=== PATIENT | female | born 1955 | race Caucasian/White ===

== ENCOUNTER 2018-11-25 11:53 | Emergency (ER) | payer BC ==
[2018-11-25] MEDS ORDERED: DUONEB 0.5-3 MG/3 ml Neb IH ONE ×2 (12:12→12:53)
--- NOTE | 2018-11-25 12:19 | ERPHSYRPT ---
- History of Present Illness Time Seen by Provider: 11/25/18 12:16 Source: patient Patient Subjective Stated Complaint: pt here for sob off and on for about a year getting worse, was seen by family doc for this, she is more tried than normal. and hs swelling to lower legs and face for about a week now, she just got back from [place] last night and was on airplane and in car for 4 hours Triage Nursing Assessment: pt alert, resp easy, skin w/d/p. chest clear, abd soft, no cough or fever, she has sunburn to face and lower legs, she has edema from knees to feet Physician History: mild to mod short of breath getting worse over one year, +GUEVARA, +edema, no pain, no fever, speech fluent, does not smoke Allergies/Adverse Reactions: dermabond Allergy (Uncoded 11/25/18 12:14) Hx Influenza Vaccination/Date Given: No Hx Pneumococcal Vaccination/Date Given: No Immunizations Up to Date: Yes - Review of Systems Constitutional: No Fever Eyes: No Vision Changes Ears, Nose, & Throat: No Nose Congestion Respiratory: Dyspnea, Dyspnea on Exertion (GUEVARA), No Cough, No Cyanosis Cardiac: No Chest Pain Abdominal/Gastrointestinal: No Abdominal Pain Genitourinary Symptoms: No Dysuria Musculoskeletal: No Back Pain Skin: No Rash Neurological: No Dizziness - Past Medical History Pertinent Past Medical History: Yes Cardiac History: High Cholesterol, Hypertension Respiratory History: Asthma - Past Surgical History Past Surgical History: Yes Female Surgical History: Section Other Surgical History: right elbow - Social History Smoking Status: Never smoker Exposure to second hand smoke: No Drug Use: none Patient Lives Alone: Yes - Female History Hx Last Menstrual Period: psot Hx Now: No - Nursing Vital Signs Nursing Vital Signs: Initial Vital Signs Temperature 98.2 F 11/25/18 12:03 Pulse Rate 68 11/25/18 12:03 Respiratory Rate 14 11/25/18 12:03 Blood Pressure 161/92 11/25/18 12:03 O2 Sat by Pulse Oximetry 97 11/25/18 12:03 Pain Scale Pain Intensity 0 - Physical Exam General Appearance: no apparent distress Eye Exam: PERRL/EOMI Ears, Nose, Throat Exam: No nasal congestion Neck Exam: normal inspection Respiratory Exam: normal breath sounds Cardiovascular/Chest Exam: normal heart sounds Abdominal/Gastrointestinal Exam: soft, No tenderness Extremity Exam: normal range of motion, swelling Neurologic Exam: alert, oriented x 3, cooperative Skin Exam: normal color, warm, dry SpO2 Interpretation: normal SpO2: 99 - Course Nursing assessment & vital signs reviewed: Yes EKG Interpreted by Me: Sinus Rhythm, Other (no stemi) - CT Exams Chest CT Interpretation: Discussed w/radiologist, Other (no pe, +opacities) Ordered Tests: Active Orders 24 hr Category Date Time Status Professional Fighter STAT Care 11/25/18 12:15 Active EKG-ER Only STAT Care 11/25/18 12:12 Active IV Insertion STAT Care 11/25/18 12:12 Active CHEST 1 VIEW (PORTABLE) Stat Exams 11/25/18 12:15 Taken CHEST WITH CONTRAST [CT] Stat Exams 11/25/18 13:39 Taken CBC W DIFF Stat Lab 11/25/18 12:32 Completed CMP Stat Lab 11/25/18 12:32 Completed D-DIMER QUANTITATION Stat Lab 11/25/18 12:32 Completed NT PRO BNP Stat Lab 11/25/18 12:32 Completed TROPONIN Q3H Lab 11/25/18 12:32 Completed TROPONIN Q3H Lab 11/25/18 15:41 Received TROPONIN Q3H Lab 11/25/18 18:15 Ordered TROPONIN Q3H Lab 11/25/18 21:15 Ordered TROPONIN Q3H Lab 11/26/18 00:15 Ordered Peak Expiratory Flow Rate ONCE RT 11/25/18 13:05 Active Respiratory Therapy Assessment DAILY RT 11/25/18 13:05 Active Medication Summary Discontinued Medications Generic Name Dose Route Start Last Admin Trade Name Freq PRN Reason Stop Dose Admin Albuterol/Ipratropium 3 ml 11/25/18 12:12 11/25/18 12:55 Duoneb 0.5-3 Mg/3 Ml Neb IH 11/25/18 12:13 3 ml STAT ONE Administration Albuterol/Ipratropium Confirm 11/25/18 12:53 Duoneb 0.5-3 Mg/3 Ml Neb Administered 11/25/18 12:54 Dose 3 ml IH .STK-MED ONE Lab/Rad Data: Laboratory Result Diagrams 11/25/18 12:32 11/25/18 12:32 Laboratory Results 11/25/18 11/25/18 11/25/18 Range/Units 12:32 12:32 12:32 WBC (4.0-10.5) K/mm3 RBC (4.1-5.4) M/mm3 Hgb (12.0-16.0) gm/dl Hct (35-47) % MCV (78-100) fl MCH (26-32) pg MCHC (32-36) g/dl RDW (11.5-14.0) % Plt Count (150-450) K/mm3 MPV (6-9.5) fl Gran % (36.0-66.0) % Eos # (Auto) (0-0.5) Absolute Lymphs (auto) (1.0-4.6) Absolute Monos (auto) (0.0-1.3) Lymphocytes % (24.0-44.0) % Monocytes % (0.0-12.0) % Eosinophils % (0.00-5.0) % Basophils % (0.0-0.4) % Absolute Granulocytes (1.4-6.9) Basophils # (0-0.4) D-Dimer 1205 H* (215-500) ng/mL Sodium 143 (137-145) mmol/L Potassium 4.1 (3.5-5.1) mmol/L Chloride 105 (98-107) mmol/L Carbon Dioxide 28 (22-30) mmol/L Anion Gap 14.1 (5-15) MEQ/L BUN 14 (7-17) mg/dL Creatinine 0.66 (0.52-1.04) mg/dL Estimated GFR > 60.0 ML/MIN Glucose 92 (74-106) mg/dL Calcium 9.9 (8.4-10.2) mg/dL Total Bilirubin 0.60 (0.2-1.3) mg/dL AST 31 (14-36) U/L ALT 29 (0-35) U/L Alkaline Phosphatase 87 (38-126) U/L Troponin I < 0.012 (0.000-0.034) ng/mL NT-Pro-B Natriuret Pep 412 (0-900) pg/mL Serum Total Protein 7.8 (6.3-8.2) g/dL Albumin 4.4 (3.5-5.0) g/dL 11/25/18 Range/Units 12:32 WBC 7.3 (4.0-10.5) K/mm3 RBC 4.65 (4.1-5.4) M/mm3 Hgb 13.9 (12.0-16.0) gm/dl Hct 42.0 (35-47) % MCV 90.3 (78-100) fl MCH 29.9 (26-32) pg MCHC 33.1 (32-36) g/dl RDW 14.6 H (11.5-14.0) % Plt Count 261 (150-450) K/mm3 MPV 11.7 H (6-9.5) fl Gran % 62.7 (36.0-66.0) % Eos # (Auto) 0.47 (0-0.5) Absolute Lymphs (auto) 1.36 (1.0-4.6) Absolute Monos (auto) 0.85 (0.0-1.3) Lymphocytes % 18.6 L (24.0-44.0) % Monocytes % 11.6 (0.0-12.0) % Eosinophils % 6.4 H (0.00-5.0) % Basophils % 0.7 (0.0-0.4) % Absolute Granulocytes 4.57 (1.4-6.9) Basophils # 0.05 (0-0.4) D-Dimer (215-500) ng/mL Sodium (137-145) mmol/L Potassium (3.5-5.1) mmol/L Chloride (98-107) mmol/L Carbon Dioxide (22-30) mmol/L Anion Gap (5-15) MEQ/L BUN (7-17) mg/dL Creatinine (0.52-1.04) mg/dL Estimated GFR ML/MIN Glucose (74-106) mg/dL Calcium (8.4-10.2) mg/dL Total Bilirubin (0.2-1.3) mg/dL AST (14-36) U/L ALT (0-35) U/L Alkaline Phosphatase (38-126) U/L Troponin I (0.000-0.034) ng/mL NT-Pro-B Natriuret Pep (0-900) pg/mL Serum Total Protein (6.3-8.2) g/dL Albumin (3.5-5.0) g/dL - Progress Progress: improved Air Movement: good Progress Note: 11/25/18 15:53 see your doctor, return if worse, diuretic, albuterol inhaler, zpak - Departure Departure Disposition: Home Clinical Impression: Pneumonia Qualifiers: Pneumonia type: due to unspecified organism Laterality: unspecified laterality Lung location: unspecified part of lung Qualified Code(s): J18.9 - Pneumonia, unspecified organism Condition: Stable Critical Care Time: No Referrals: SMITA CHÁVEZ MD [Primary Care Provider] - Instructions: Shortness of Breath (Dyspnea) (DC) Prescriptions: Albuterol Sulfate [Albuterol Sulfate Hfa] 2 puff IH Q4-6HPRN PRN #1 [id number] PRN Reason: cough or wheeze Azithromycin 250 mg [Zithromax 250 MG TABLET] 250 mg PO ZPACK #6 tablet Triamterene/Hydrochlorothiazid [Dyazide 37.5-25 Capsule] 1 each PO DAILY 7 Days #7 capsule
[2018-11-25 12:55] LABS: BASOPHIL % 0.7 % (0.0-0.4); Basophil (Absolute #) 0.05 (0-0.4); Eosinophil % 6.4 % (0.00-5.0); Eosinophil (Absolute #) 0.47 (0-0.5); Granulocyte Absolute (ANC) 4.57 (1.4-6.9); Granulocytes % 62.7 % (36.0-66.0); Hemoglobin 13.9 gm/dl (12.0-16.0); Lymphocyte (Absolute #) 1.36 (1.0-4.6); Lymphocytes % 18.6 % (24.0-44.0); Mean Cell Volume 90.3 fl (78-100); Mean Corpuscular Hemoglobin 29.9 pg (26-32); Mean Corpuscular Hgb Concent. 33.1 g/dl (32-36); Mean Platelet Volume 11.7 fl (6-9.5); Monocyte (Absolute #) 0.85 (0.0-1.3); Monocytes % 11.6 % (0.0-12.0); Platelet Count 261 K/mm3 (150-450); Red Blood Count 4.65 M/mm3 (4.1-5.4); Red Cell Distribution Width 14.6 % (11.5-14.0); White Blood Count 7.3 K/mm3 (4.0-10.5)
[2018-11-25 13:16] LABS: ALBUMIN 4.4 g/dL (3.5-5.0); ALKALINE PHOSPHATASE 87 U/L (38-126); ANION GAP 14.1 MEQ/L (5-15); BLOOD UREA NITROGEN 14 mg/dL (7-17); CHLORIDE 105 mmol/L (98-107); Calcium 9.9 mg/dL (8.4-10.2); Carbon Dioxide 28 mmol/L (22-30); Creatinine 1 0.66 mg/dL (0.52-1.04); Glucose 92 mg/dL (74-106); NT PRO BNP 412 pg/mL (0-900); Potassium 4.1 mmol/L (3.5-5.1); SGOT/AST 31 U/L (14-36); SGPT/ALT 29 U/L (0-35); SODIUM 143 mmol/L (137-145); Total Protein 7.8 g/dL (6.3-8.2)
[2018-11-25] MEDS ORDERED: ROCEPHIN 1 Gm-D5w 50 ml Bag** 1 G/50 ML IVPB IV STA (15:51)
[2018-11-25] MEDS ORDERED: Lasix 40 MG/4 ML ONE (15:58)
[2018-11-25] MEDS ORDERED: ROCEPHIN 1 Gm-D5w 50 ml Bag** 1 G/50 ML IVPB IV ONE (15:58)
[2018-11-25 16:18] VITALS: BP 143/67; PULSE 78; O2SAT 96
--- NOTE | 2018-11-25 22:06 | XRAY ---
Indication: Short of breath. Feet and face swelling. Elevated d-dimer. Multiple contiguous axial images obtained through the chest using 80 cc of Isovue-370 contrast and PE protocol. Comparison: None There is satisfactory opacification of the pulmonary arteries including lobar and segmental branches. No filling defect or pulmonary embolus. Heart is borderline enlarged. Aorta minimally tortuous carotid without aneurysm/dissection. A few mediastinal and right perihilar calcified nodes. No pathologic mediastinal or hilar lymphadenopathy. Examination of lung parenchyma demonstrates minimal scattered fibrosis/scarring bilaterally, mild bilateral dependent atelectasis, and small right effusion. Also bilateral hazy groundglass opacities, possible airspace disease versus pulmonary edema. Tiny right upper lobe calcified granuloma. No suspicious pulmonary mass. Bony thorax intact with flowing osteophytes throughout the spine. Limited upper abdomen demonstrates fatty liver with a few calcified splenic granulomas. Impression: 1. Negative pulmonary embolus. 2. Hazy bilateral groundglass opacities, possibly airspace disease versus pulmonary edema. Small right effusion. 3. Fatty liver and evidence for old granulomatous disease. Comment: Preliminary interpretation was made by [facility]. No discrepancy. CTDI 28.14
--- NOTE | 2018-11-25 22:08 | XRAY ---
Indication: Short of breath. Comparison: June 18, 2014. Portable chest demonstrates new left midlung and right base subsegmental atelectasis/scarring. Stable right upper lobe calcified granuloma. No consolidation or large effusion. Heart is borderline-enlarged. Bony thorax intact again with mild degenerative changes. Impression: Bilateral subsegmental atelectasis/scarring and borderline cardiomegaly. Negative for acute pneumonic process or CHF.
[2018-11-26] MEDS ORDERED: Lasix 20 MG/2 ML IV ONE (15:50)
== END 2018-11-25 16:35 | disposition home or self-care (01) ==
LOC: ED 11:53
DX: J18.9 Pneumonia, unspecified organism (principal); R06.00 Dyspnea, unspecified; E78.00 Pure hypercholesterolemia, unspecified; I10 Essential (primary) hypertension
CPT/HCPCS: 36000; 36415; 71045; 71260; 80053; 83880; 84484; 85025; 85379; 93005; 93041; 94150; 94640; 96365; 96374; 99284; J0696; J1940; A9270-GY